=== PATIENT | female | born 1975 | race Caucasian/White ===

== ENCOUNTER 2018-05-04 14:16 | Emergency (ER) | payer OTHER, SELFPAY ==
[2018-05-04 14:18] VITALS: BP 159/97; PULSE 83; RESP 16; TEMP 37; O2SAT 97; BMI 23.3
--- NOTE | 2018-05-04 14:22 | EKG12_ITS ---
Test Reason : CP Blood Pressure : / mmHG Vent. Rate : 087 BPM Atrial Rate : 087 BPM P-R Int : 130 ms QRS Dur : 076 ms QT Int : 376 ms P-R-T Axes : 073 061 063 degrees QTc Int : 452 ms Normal sinus rhythm Possible Left atrial enlargement Borderline ECG Confirmed by JUDIT WASHINGTON, LEEANN ([id number]), food editor LUIS CABALLERO ([id number]) on 05/06/2018 1:52:11 PM Referred By: JAQUAN Confirmed By:LEEANN SPAIN MD
== END 2018-05-04 17:11 | disposition left against medical advice (07) ==
PROVIDERS: Emergency Provider Emergency Medicine; PCP Family Medicine
DX: R69 Illness, unspecified (principal); Z53.21 Procedure and treatment not carried out due to patient leaving prior to being seen by health care provider
CPT/HCPCS: 93005